=== PATIENT | male | born 1965 | race Caucasian/White ===

== ENCOUNTER → 2017-06-25 | Outpatient (CLI) | payer OTHER ==
[~2017-06-25] MED LIST: ABILIFY 5 MG TAB5 MG PO; ABILIFY10 MG PO; ACETAMINOPHEN325 M1 PO; ADDERALL 30 MG30 MG PO; ADDERALL XR 2020 MG PO; ALBUTEROL SULF8.5 GM INH; AMBIEN 10 MG TA10 MG PO; AMOXICILLIN 50500 MG PO; ANTI-DIARRHEA2 MG PO; AVINZA 30 MG CA30 MG PO; AVINZA 30 MG PO; AVINZA 90 MG CA90 MG; AVINZA 90 MG CA90 MG PO; AVINZA PO; BENADRYL25 MG PO; BENTYL 10 MG CA10 M1 PO; CENTRUM SILVER1 EAC2 PO; CIPRO500 MG PO; CIPROFLOXACIN500 M3; CLARITIN10 MG PO; CLONAZEPAM 0.50.5 M1 PO; COLACE 100 MG100 MG PO; COLESTID1 GM PO; HUMARA INJECTION; HUMIRA40 MG/0.1; HUMIRA40 MG/0.8 SQ; IMODIUM; IMODIUM MULTI-1 EACH; KEFLEX500 MG PO; KLONOPIN1 MG PO; LEVAQUIN 500 M500 M2 PO; LIPITOR20 MG; LISINOPRIL5 MG PO; LIVALO2 MG PO; METFORMIN HCL500 MG PO; MIRALAX17 GM PO; MS CONTIN15 MG PO; NEXIUM40 MG PO; NORCO 5-325 TA1 EACH PO; NYSTATIN 1100000 U/M SW&SWALLOW; OPIUM TINC10 MG/1 M1 PO; PRILOSEC 20 MG20 MG PO; PROCARDIA XL60 MG PO; PROZAC 10 MG CA10 M1; PROZAC 10 MG CA10 MG PO; PROZAC 20 MG20 MG PO; PROZAC40 MG PO; TIZANIDINE HCL4 MG PO; TOPROL XL100 MG PO; TOPROL XL50 MG; TRIMIX; VANCOMYCIN HCL1 GM IVPB; WELLBUTRIN SR150 MG PO; [UNRECOGNIZED DRUG - OTHER] PO; [UNRECOGNIZED DRUG - OTHER] PO
== END ==
LOC: M.RAD 16:28
DX: I51.7 Cardiomegaly (principal); J18.9 Pneumonia, unspecified organism

== ENCOUNTER 2017-07-02 23:23 | Inpatient (IN) | payer OTHER ==
[~2017-07-02] VITALS: Ht 167.6 cm; Wt 88.0 kg
[~2017-07-02 23:23] MED LIST changes: -CLONAZEPAM 0.50.5 M1 PO; -HUMIRA40 MG/0.1; -LIVALO2 MG PO; -MS CONTIN15 MG PO; -PROCARDIA XL60 MG PO
[2017-07-02 23:28] VITALS: BP 153/95
[2017-07-02] MEDS ORDERED: HUMIRA40 MG/0.1 (23:35)
[2017-07-02 23:50] LABS: ABSOLUTE BASOPHILS 0.1 thou/uL (0.0-0.2); ABSOLUTE EOSINOPHILS 0.2 thou/uL (0.0-0.7); ABSOLUTE LYMPHOCYTES 4.4 thou/uL (0.8-5.3); ABSOLUTE MONOCYTES 1.7 thou/uL (0.0-1.2); ABSOLUTE NEUTROPHILS 9.4 thou/uL (1.6-8.1); BASOPHILS 0.7 %; EOSINOPHILS 1.5 %; HEMATOCRIT 43.6 % (42.0-52.0); HEMOGLOBIN 13.9 gm/dL (14.0-18.0); LYMPHOCYTES 27.6 %; MCH 26.6 pg (26.0-34.0); MCHC 31.9 g/dL (28.0-37.0); MCV 83.2 fL (80.0-100.0); MONOCYTES 10.9 %; MPV 7.7 fl. (7.2-11.1); NUCLEATED RBCS 0 /100WBC; PLATELET COUNT* 451 thou/uL (150-400); POLYS 59.3 %; RBC 5.24 mil/uL (4.50-6.00); RDW-CV 18.1 % (10.5-14.5); WBC 15.9 thou/uL (4.0-11.0)
[2017-07-03] LABS: CALCIUM 9.3 mg/dL (8.5-10.1); CREATININE 1.1 mg/dL (0.6-1.3); POTASSIUM 4.7 mmol/L (3.5-5.1)
[2017-07-03 00:11] LABS: ALBUMIN 3.4 g/dL (3.4-5.0); TOTAL BILIRUBIN 0.3 mg/dL (<0.1-1.0); TOTAL PROTEIN 6.8 g/dL (6.4-8.2)
[2017-07-03 02:12] VITALS: BP 136/89
[2017-07-03 02:20] VITALS: BP 147/94
[2017-07-03] MEDS ORDERED: LIVALO2 MG PO (03:40)
[2017-07-03] MEDS ORDERED: MS CONTIN15 MG PO (03:40)
[2017-07-03] MEDS ORDERED: ADDERALL 30 MG30 MG PO (03:43)
[2017-07-03] MEDS ORDERED: PROCARDIA XL60 MG PO (03:45)
[2017-07-03] MEDS ORDERED: CLONAZEPAM 0.50.5 M1 PO (03:46)
--- NOTE | 2017-07-03 04:16 | NUR ---
RECEIVED REPORT FROM ER NURSE, TERESA, RN AT 0135. PT ARRIVED TO UNIT AT 0215 VIA GURNEY. IV ANTIBIOTICS INFUSING, PT ON 3L O2 VIA NC. DENIES PAIN. PT ORIENTED TO ROOM AND CALL LIGHT. FALL EDUCATION/CONTRACT REVIEWED WITH PATIENT, PT VERBALIZED UNDERSTANDING. REFUSED SCDS AT THIS TIME. PT POSITIVE FOR SEPSIS PROTOCOL AT 0255. DR. LANCASTER NOTIFIED AT 0311. NO NEW ORDERS RECEIVED. CALL LIGHT WITHIN REACH. NO CONCERNS VOICED AT THIS TIME.
[2017-07-03 04:34] VITALS: BP 137/88
--- NOTE | 2017-07-03 04:44 | NUR ---
PT DENIES PAIN THIS SHIFT, HOURLY ROUNDING COMPLETED, CALL LIGHT WITHIN REACH.
[2017-07-03 05:20] LABS: URINE BILIRUBIN NEGATIVE (Negative); URINE BLOOD NEGATIVE (Negative); URINE CLARITY CLEAR; URINE COLOR YELLOW; URINE GLUCOSE-RANDOM 1+ (Negative); URINE KETONES NEGATIVE (Negative); URINE LEUKOCYTES NEGATIVE (Negative); URINE NITRITE NEGATIVE (Negative); URINE PROTEIN NEGATIVE (Negative); URINE UROBILINOGEN 0.2 E.U./dl (0.2-1.0)
--- NOTE | 2017-07-03 13:43 | NUR ---
RECEIVED REPORT. ASSUMED CARE OF PT AT 0730. PT A&O X4. VSS. O2 SAT 95% ON RA. PT M/S STATUS. AM ASSESSMENT AND VITALS COMPLETED CHARTED. IV PATENT AND INFUSING. PT REPORTS OCCASIONAL PAIN WHEN TAKING A DEEP BREATH. LUNGS WHEEZY IN THE BASES. BREATHING TREATMENTS ADMINISTERED PT EMAR AND PRN. PT DENIES OTHER PAIN OR DISCOMFORT. PT EATING AND DRINKING WITHOUT ISSUE. FAMILY VISITED AROUND LUNCH TIME. PT UP AD ADEEL IN ROOM, VERY STEADY. UP TO THE BATHROOM, VOIDING WITHOUT ISSUE. ISOLATION MAINTAINED, AWAITING MRSA SWAB RESULTS. LOW FALL RISK PRECAUTIONS IN PLACE. CALL LIGHT IS WITHIN REACH. WILL CONTINUE TO MONITOR.
[2017-07-03 14:32] LABS: CALCIUM 9.1 mg/dL (8.5-10.1); CREATININE 1.3 mg/dL (0.6-1.3); POTASSIUM 4.2 mmol/L (3.5-5.1)
[2017-07-03 16:17] VITALS: BP 118/62
--- NOTE | 2017-07-03 18:41 | NUR ---
PT REMAINS A&O X4. VSS. O2 SAT >90% ON RA. PT REMAINS M/S STATUS. IV PATENT AND INFUSING. PT EATING AND DRINKING WITHOUT ISSUE. PT HAS DENIED PAIN OR DISCOMFORT THROUGHOUT THE SHIFT. PT UNABLE TO PRODUCE A SPUTUM SAMPLE TODAY. MRSA RESULTS STILL PENDING. ISOLATION MAINTAINED. PT UP AD ADEEL TO THE BATHROOM, VOIDING WITHOUT ISSUE. PT PROGRESSING TOWARD GOALS. LOW FALL RISK PRECAUTIONS IN PLACE. CALL LIGHT IS WITHIN REACH. HOURLY ROUNDING PERFORMED. WCTM FOR DURATION OF SHIFT.
[2017-07-03 20:00] VITALS: BP 117/77
[2017-07-04 04:00] VITALS: BP 120/81
--- NOTE | 2017-07-04 05:34 | NUR ---
ASSUMED CARE OF PT AT 1930, NURSING ASSESSMENT COMPLETED AT START OF SHIFT, PT VOICED NO CONCERNS THIS SHIFT, HOURLY ROUNDING COMPLETED, PT MED SURG STATUS, IV FLUIDS INFUSING, IV ANTIBIOTICS ADIMISTERED, SEE EMAR FOR DOCUMENTATION, PT PROGRESSING TOWARDS GOALS, ON ROOM AIR, NO SOA THIS SHIFT, O2 SAT IN MID 90'S WITHOUT O2. CALL LIGHT WITHIN REACH. NO FALLS THIS SHIFT.
[2017-07-04 08:50] VITALS: BP 95/56
--- NOTE | 2017-07-04 10:13 | NUR ---
RECEIVED REPORT, ASSUMED CARE OF PT AROUND 0730. PT A&OX4. VSS, O2 SAT 93% ON RA. PT M/S STATUS. AM ASSESSMENT AND VITALS COMPLETED CHARTED. IV PATENT AND INFUSING. PT REPORTS HEADACHE AT 210, RECEIVED TYLENOL. PT EATING AND DRINKING WITHOUT ISSUE. VOIDING WITHOUT ISSUE. UP TO SHOWER THIS AM. PT INFORMED OF PLAN OF CARE, COMMUNICATES UNDERSTANDING. LUNGS SOUND BETTER TODAY, PT REPORTS THAT LUNGS FEEL CONGESTED STILL. PT TO TRANSFER TO ROOM 307. PT CURRENTLY SITTING UP IN BED. CALL LIGHT IS WITHIN REACH. LOW FALL RISK PRECAUTIONS ARE IN PLACE. WCTM.
[2017-07-04 11:00] VITALS: BP 112/65
--- NOTE | 2017-07-04 11:00 | NUR ---
ASSUMED CARE OF PATIENT AT THIS TIME. PATIENT SETTLED TO ROOM, VITALS COMPLETED AND DOCUMENTED. PATIENT ON ROOM AIR. LUNGS SOUNDS WHEEZY/COARSE. PATIENT DENIES ANY PAIN. CALL LIGHT WITHIN REACH. WILL CONTINUE TO MONITOR.
--- NOTE | 2017-07-04 11:45 | NUR ---
MET WITH PT TO DISCUSS HOME SITUATION/DC PLANNING. AT BEDSIDE. PT LIVES WITH , IS INDEPENDENT AND ACTIVE. HE USES NO EQUIPMENT AND HASN'T HAD HH. HE WORKS AND IS ACTIVE. DENIES ANY DC NEEDS. WILL FOLLOW
[2017-07-04 16:20] VITALS: BP 111/67
--- NOTE | 2017-07-04 18:28 | NUR ---
PATIENT RESTING IN BED. PATIENT UP AD ADEEL IN ROOM. PATIENT ON ROOM AIR. PATIENT DID HAVE SOME SHORTNESS OF BREATH THIS AFTERNOON, BETTER AFTER BREATHING TREATMENT. PATIENT DENIES ANY PAIN. PATIENT DENIES ANY NEEDS AT THIS TIME. CALL LIGHT WITHIN REACH. WILL CONTINUE TO MONITOR.
[2017-07-04 20:00] VITALS: BP 116/63
[2017-07-05 04:44] LABS: HEMATOCRIT 39.7 % (42.0-52.0); HEMOGLOBIN 12.7 gm/dL (14.0-18.0); MCH 26.3 pg (26.0-34.0); MCHC 31.9 g/dL (28.0-37.0); MCV 82.4 fL (80.0-100.0); NUCLEATED RBCS 0 /100WBC; PLATELET COUNT* 458 thou/uL (150-400); RBC 4.82 mil/uL (4.50-6.00); RDW-CV 17.6 % (10.5-14.5); WBC 16.1 thou/uL (4.0-11.0)
--- NOTE | 2017-07-05 05:05 | NUR ---
PT SLEPT SOUNDLY DURING THE NIGHT, IV FLUIDS INFUSED, IV ANTIBIOTICS GIVEN, UP AD ADEEL, PLEASANT, SCHEDULED PAIN MED AT HS, WORE CPAP WHILE SLEEPING, CALL LIGHT IN REACH, WILL CONTINUE TO MONITOR
[2017-07-05 06:14] LABS: ABSOLUTE LYMPHOCYTES 1.9 thou/uL (0.8-5.3); ABSOLUTE MONOCYTES 1.4 thou/uL (0.0-1.2); ABSOLUTE NEUTROPHILS 12.7 thou/uL (1.6-8.1); PLATELET ESTIMATE INCREASED
[2017-07-05 06:15] LABS: ANISOCYTOSIS Occasional
[2017-07-05 08:07] VITALS: BP 112/65
--- NOTE | 2017-07-05 08:09 | NUR ---
PATIENT TOLD THE RESPITORY THERAPIST THAT HE WAS HAVING CHEST PAIN. DURING AN ASSESSMENT THE PATIENT IS STILL COMPLAINING OF CHEST PAIN, PATIENT IS COMPLAINGING OF BEING HARD TO TAKE IN A DEEP BREATH AND IS DIAPHORECTIC. SAYS THE CHEST PAIN IS ALSO IN HIS BACK AND SAYS THE PAIN IS LIKE A PRESSURE. EKG AND VITALS DONE. WAITING OF A CALL FROM THE PROVIDER, WELL BLOWER NOTIFIED. WILL CONTINUE TO MONITOR.
--- NOTE | 2017-07-05 13:58 | EKG ---
[place] [address] ELECTROCARDIOGRAM REPORT Name: FLORESSHON CrShaye KAPOOR Room: [address] ADM IN M.R.#: [id number] Admission: 07/03/17 Attend Phys: Jewel Gupta MD Discharge: Date of : 69 Report #: [id number] THIS REPORT FOR: //name// [facility] Test Date: 2017-07-05 Test Time: 07:54:20 Pat Name: SANTIAGO FLORES Department: Room: [address] Gender: M Seo Executive: : 1965 Requested By: Jewel Gupta Order Number: [id number] Reading MD: Jelani Mora Measurements Intervals [place] Rate: 107 P: 67 MN: 144 QRS: 46 QRSD: 64 T: -75 QT: 299 QTc: 399 Interpretive Statements Sinus tachycardia Left atrial enlargement Nonspecific T abnormalities, lateral leads Compared to ECG 07/06/2016 16:53:29 T-wave abnormality now present Sinus rhythm no longer present Electronically Signed On 07-05-2017 13:58:32 CDT by Jelani Mora [email or web address] <ELECTRONICALLY SIGNED> By: Jelani Mora MD, [facility] 07/05/17 [id number] [id number] Jelani Mora MD, [facility] /EPI
[2017-07-05 16:25] VITALS: BP 118/62
--- NOTE | 2017-07-05 17:35 | NUR ---
PATIENT IS ALERT AND ORIENTED TODAY VERY PLEASANT. UP AD ADEEL IN ROOM. VITAL SIGNS HAVE BEEN STABLE ON ROOM AIR TODAY. IS STILL COMPLAINING OF SOME CHEST DISCOMFORT, MYLANTA WAS GIVEN THIS AFTERNOON TO SEE THAT WILL HELP RELIEVE SOME OF THE DISCOMFORT. FAMILY IS AT BEDSIDE TODAY. CALL LIGHT IS IN REACH, WILL CONTINUE TO MONITOR.
[2017-07-05 19:45] VITALS: BP 124/65
[2017-07-06 04:21] LABS: ABSOLUTE BASOPHILS 0.3 thou/uL (0.0-0.2); ABSOLUTE EOSINOPHILS 0.1 thou/uL (0.0-0.7); ABSOLUTE LYMPHOCYTES 3.3 thou/uL (0.8-5.3); ABSOLUTE MONOCYTES 2.7 thou/uL (0.0-1.2); ABSOLUTE NEUTROPHILS 19.6 thou/uL (1.6-8.1); EOSINOPHILS 0.2 %; HEMATOCRIT 44.3 % (42.0-52.0); HEMOGLOBIN 14.1 gm/dL (14.0-18.0); LYMPHOCYTES 12.7 %; MCH 26.2 pg (26.0-34.0); MCHC 31.9 g/dL (28.0-37.0); MCV 82.3 fL (80.0-100.0); MONOCYTES 10.3 %; NUCLEATED RBCS 0 /100WBC; PLATELET COUNT* 513 thou/uL (150-400); POLYS 75.8 %; RBC 5.38 mil/uL (4.50-6.00); RDW-CV 18.1 % (10.5-14.5); WBC 25.8 thou/uL (4.0-11.0)
[2017-07-06 04:44] LABS: ALBUMIN 3.4 g/dL (3.4-5.0); CALCIUM 9.6 mg/dL (8.5-10.1); CREATININE 1.5 mg/dL (0.6-1.3); POTASSIUM 4.7 mmol/L (3.5-5.1); TOTAL BILIRUBIN 0.9 mg/dL (<0.1-1.0)
--- NOTE | 2017-07-06 05:03 | NUR ---
PT SLEPT AT INTERVALS DURING THE NIGHT, IV ANTIBIOTICS GIVEN, WORE CPAP WHILE SLEEPING, SPOKE WITH DR. OLEA LAST NIGHT REGARDING PATIENT, PATIENT C/O CHEST/LUNG COUGHING PAIN AGAIN, ORDERS TO GIVEN PRN KLONIPIN AND PRN HYDROCODONE. RELIEF OBTAINED. BREATHING TREATMENTS BY RT. RASHEED, CALL LIGHT IN REACH, WILL CONTINUE TO MONITOR
[2017-07-06 08:25] VITALS: BP 110/63
--- NOTE | 2017-07-06 09:48 | 2DMMODE ---
[place] [address] 2 D/M-MODE ECHOCARDIOGRAM Name: SANTIAGO FLORES Room: [address] IN [facility]#: [id number] Admission: 07/03/17 Attend Phys: Jewel Gupta, Discharge: Date of : 69 Date of Service: 07/06/17 0948 Report #: [id number] THIS REPORT FOR: //name// APPROVED REPORT Study performed: 07/05/2017 15:42:42 EXAM: Comprehensive 2D, Doppler, and color-flow Echocardiogram Patient Location: In-Patient Room #: [facility] Status: routine BSA: 1.91 HR: 97 bpm BP: 112/653 mmHg Rhythm: NSR Other Information Study Quality: Good Indications Dyspnea Chest Pain 2D Dimensions LVEF(%): 68.92 (>50%) IVSd: 13.18 (7-11mm) LVOT Diam: 19.35 (18-24mm) LVDd: 42.33 mm PWd: 10.40 (7-11mm) Ascending Ao: 32.16 (22-36mm) LVDs: 26.12 (25-40mm) Aortic Root: 32.59 mm Varela's LVEF: 68.92 % Volumes Left Atrial Volume (Systole) LA ESV Index: 24.10 mL/m2 Aortic Valve AoV Peak Jarrod.: 2.11 m/s AO Peak Gr.: 17.78 mmHg LVOT Max P.83 mmHg AO Mean Gr.: 10.36 mmHg LVOT Mean P.86 mmHg LVOT Max V: 1.65 m/s AO V2 VTI: 32.97 cm LVOT Mean V: 1.13 m/s LARRY (VTI): 2.10 cm2 LVOT V1 VTI: 23.58 cm [place] [address] 2 D/M-MODE ECHOCARDIOGRAM Name: SANTIAGO FLORES Room: [address] IN .R.#: [id number] Admission: 07/03/17 Attend Phys: Jewel Gupta, Discharge: Date of : 69 Date of Service: 07/06/17 0948 Report #: [id number] E/A Ratio: 1.18 MV Decel. Time: 175.70 ms MV E Max Jarrod.: 1.43 m/s MV PHT: 50.95 ms MVA (PHT): 4.32 cm2 TDI E/Lateral E': 9.53 E/Medial E': 9.53 Medial E' Jarrod.: 0.15 m/s Lateral E' Jarrod.: 0.15 m/s Pulmonary Valve PV Peak Jarrod.: 1.46 m/s PV Peak Gr.: 8.50 mmHg Left Ventricle The left ventricle is normal size. There is normal LV segmental wall motion. There is normal left ventricular wall thickness. Left ventricular systolic function is normal. The left ventricular ejection fraction is within the normal range. LVEF is 60-65%. The left ventricular diastolic function is normal. Right Ventricle The right ventricle is normal size. The right ventricular systolic function is normal. Atria The left atrium size is normal. The right atrium size is normal. Aortic Valve The aortic valve is normal in structure. No aortic regurgitation is present. There is no aortic valvular stenosis. Mitral Valve The mitral valve is normal in structure. There is no mitral valve regurgitation noted. No evidence of mitral valve stenosis. Tricuspid Valve The tricuspid valve is normal in structure. Unable to assess PA pressure. Trace tricuspid regurgitation. Pulmonic Valve The pulmonary valve is normal in structure. There is no pulmonic valvular regurgitation. [place] [address] 2 D/M-MODE ECHOCARDIOGRAM Name: SANTIAGO FLORES Room: [address] IN ..#: [id number] Admission: 07/03/17 Attend Phys: Jewel Gupta, Discharge: Date of : 69 Date of Service: 07/06/17 0948 Report #: [id number] The aortic root is normal in size. IVC is normal in size and collapses with >50% inspiration Pericardium There is no pericardial effusion. <Conclusion> The left ventricle is normal size. There is normal left ventricular wall thickness. LVEF is 60-65%. There is normal LV segmental wall motion. Normal valvular function <ELECTRONICALLY SIGNED> By: Chris Bassett MD, FACC 07/06/1748 7 7 Chris Bassett MD, FACC /INF
--- NOTE | 2017-07-06 16:19 | NUR ---
PATIENT HAS BEEN A/O X 4 THIS SHIFT. HAS HAD SOME PERIODS OF INCREASED SHORTNESS OF AIR THIS SHIFT WHEN ON ROOM AIR, APPLIED O2 AT 2L/NC AND PATIENT STATES FEELING BETTER. CONTINUES TO HAVE CHEST PRESSURE/LUNG PAIN, MEDICATED WITH RELIEF OF PRN HYDOROCODONE. IV ANTIBIOTICS INFUSING ORDERED. UP TO CHAIR TODAY FOR PERIODS OF TIME AND AMBUALTING IN [place] FOR SHORT DISTANCES. SEEN BY PULMONARY AND MEDS ADJUSTED. TOLERATING DIET. AT BEDSIDE THROUGHOUT THE SHIFT. HOURLY ROUNDING MAINTAINED. CALL LIGHT WITHIN REACH. WILL CONTINUE WITH PLAN OF CARE.
[2017-07-06 16:42] VITALS: BP 132/71
[2017-07-06 20:15] VITALS: BP 108/72
--- NOTE | 2017-07-07 02:28 | NUR ---
WENT TO PATIENT ROOM ABOUT 0130 TO GIVE BENADRYL FOR ANXIETY. AFTER MEDICATION GIVEN, NOTICED 2 PILLS AND AN INHALER SITTING ON BEDSIDE TABLE. ASKED PATIENT ABOUT PILLS, PT STATED THAT ONE WAS MORPHINE THE OTHER WAS SOMETHING THAT BEGAN WITH AN L BUT HE COULD NOT REMEMBER FOR SURE WHAT IS WAS. ASKED PT WHERE HE GOT THE PILLS AND PT SAID THEY ARE HIS HOME MEDICATIONS THAT HE HAS IN HIS BAG. EDUCATED PT ON WHY HE CANNOT TAKE HIS OWN HOME MEDICAIONS, PT STATED UNDERSTANDING BUT ADDED THAT HE WAS JUST TOO ANXIOUS AND THAT IF WE DID NOT GET HIM SOMETHING THAT HE WOULD HAVE TO TAKE HIS OWN. INFORMED PT THAT HOME MEDICATIONS HAD TO BE SENT TO PHARMACY, PT REFUSED STATING HE WOULD JUST PUT THEM BACK IN HIS BAG. INFORMED PT THAT MORPHINE WAS NOT FOR ANXIETY AND PT STATED THAT HIS ANXIETY WAS FROM EVERYTHING GOING ON AND HIS CHEST HURTING WAS CAUSING MORE ANXIETY. HEAT TREATER HELPER NOTIFIED. DR DSOUZA, WAITING TO HEAR BACK.
--- NOTE | 2017-07-07 02:56 | NUR ---
TALKED WITH DR. MARGAUX ACE. TALKED WITH PATIENT AGAIN, TOLD PT WE CANNOT GIVE ANY MORE MEDICATIONS IF HE KEPT HIS HOME MEDS, PT AGREED TO HAND OVER MEDICATIONS. PT GAVE NURSE 1 ROUND WHITE PILL WITH RENEA ON ONE SIDE AND 2 ON THE OTHER, ONE OFFWHITE PILL WITH 54 [phone] ON IT, AND A SYMBICORT INHALER. PT STATED THAT THIS WAS ALL HE HAD BROUGHT, ASKED HOW PT BROUGHT IT SINCE WAS GIVEN TO NURSE IN HOSPITALS MEDICINE CUP. PT STATED THAT HE ONLY BROUGHT THOSE PILLS IN A ZIP LOCK BAGGIE, BAG WAS NOT SEEN. WILL GIVEN TO FINANCIAL SALES ASSOCIATE TO SEND TO PHARMACY.
--- NOTE | 2017-07-07 06:30 | NUR ---
WENT TO GIVE MORNING MEDS, SECURITY FOLLOWED TO TALK TO PATIENT. SECURITY EXPLAINED TO PATIENT THAT HE CANNOT TAKE HIS OWN MEDICATION. PT STATED UNDERSTANDING AND TOLD SECURITY THAT HE DOES NOT HAVE ANY MEDICATIONS ON HIM ANYMORE. AFTER SECURITY LEFT, PT STATED THAT HIS NEEDS HAVE NOT BEEN GETTING MET FOR HIS ANXIETY AND THATS WHY HE HAS HIS HOME MEDS. HE STATED THAT HE IS NOT ALWAYS GETTING THE MEDICATION FAST ENOUGH, AND THAT UNTIL THE ATIVAN WAS ORDERED HE WAS NOT GETTING THE TYPE OF MEDICATION THAT HE HAS BEEN NEEDING. PT ALSO STATED AFTER THAT, THAT A NURSE TOLD HIM THAT HE WAS ALLOWED TO TAKE HIS OWN MEDICATION. PT STATED THAT A NURSE TOLD HIM THAT SINCE WE DON'T CARRY ADDERALL THAT HE WAS TOLD TO TAKE HIS OWN, PT EDUCATED THAT WE HAVE HOME MEDICATIONS SENT TO PHARMACY AND WE KEEP THEM AND SCAN THEM EACH TIME THAT THEY ARE TO BE GIVEN. PT INSISTED THAT HE WAS NOT TOLD THIS, THAT HE WAS JUST SUPPOSED TO TAKE THEM. PT STATED THAT HE HAS NOT BEEN TAKING HIS ADDERALL AND THAT HE DOES NOT HAVE IT ON HIM. ADULT DAY CARE WORKER NOTIFIED, WILL INFORM ONCOMING NURSE.
--- NOTE | 2017-07-07 07:46 | NUR ---
PT AWAKE MOST OF SHIFT. ASSESSMENT DOCUMENTED, MEDS GIVEN PER E-MAR. PAIN MEDS GIVEN PER E-MAR. PT REPORTS UNCONTROLLED ANXIETY AND THAT THE PAIN IS MAKING THE ANXIETY WORSE. SEE PREVIOUS NOTES. REPORT GIVEN TO ONCOMING NURSE.
[2017-07-07 07:50] VITALS: BP 117/60
--- NOTE | 2017-07-07 10:59 | CON ---
[address] [address] CONSULTATION Name: SANTIAGO FLORES Room: [address] IN M.R.#: [id number] Admission: 07/03/17 Attend Phys: Jewel Gupta MD Discharge: Date of : 69 Report #: [id number] THIS REPORT FOR: //name// CC: Jewel Davis DO DATE OF SERVICE: 07/06/2017 PULMONARY CONSULTATION ATTENDING PHYSICIAN: Omar Davis DO. PRIMARY CARE PHYSICIAN: Angle Novoa M.D. INDICATION FOR CONSULTATION: Dyspnea, wheezing and bronchospasm. HISTORY OF PRESENT ILLNESS: The patient, 51-year-old male, nonsmoker, presented to the Emergency Room Department on 07/02/2017 with a 2- to 3-week history of shortness of breath. He had bronchitis, possible lower lobe infiltrates. Two weeks ago, he was put on a Prednisone taper 20 mg a day for 5 days. He also finished his Z-TARAN and some Amoxil. He really did not feel that much better. He just used his nebulizer machine prior to coming to the Emergency Room Department. He has been on a nebulizer intermittently over the last at least 3-4 weeks. The patient was short of breath with a cough. He actually feels worse while he is in the hospital. Saturations on 2 liters, 93% to 94% and he just feels better with the oxygen. He appears short of breath at rest. He is short of breath when he gets up and walks to the nurse's station, according to his nurse. He denies any fever or chills. Denies any hemoptysis. He felt congested, but cleared up some thin clear sputum. His saturations have been okay. We will keep him on 2 liters at this time at sats 94%. He has never been on oxygen before. He is on a CPAP machine at 7 cm for obstructive sleep apnea. He is not on any oxygen at night for that. PAST MEDICAL HISTORY: He has had a history of ulcerative colitis and Crohn's disease. He had a colon resection several years ago. His Crohn's is still active. He is taking Humira every 8 weeks. He skipped at about 4 weeks ago to let his immune system improve. He has had a remote history of bronchitis. He denies any history of asthma. He has intermittent diarrhea because of his inflammatory bowel disease. His dyspnea at this time is definitely worse than what it has ever been. Again, obstructive sleep apnea, on 7 cm of auto CPAP. Sleep study was done about 5-[address] in [facility]. OUTPATIENT MEDICATIONS: He was on metformin 1000 mg b.i.d., omeprazole [address] [place] [address] CONSULTATION Name: SANTIAGO FLORES Room: [address] IN ..#: [id number] Admission: 07/03/17 Attend Phys: Jewel Gupta MD Discharge: Date of : 69 Report #: [id number] daily, nifedipine 120 mg b.i.d., clonazepam 0.5 mg t.i.d. anxiety, Prozac 20 mg daily and zolpidem 10 mg p.r.n. for sleep. CPAP is at 7 cm. He was on prednisone 40 mg a day. He was on Levaquin 750 mg p.o. daily and Zosyn 3.375 q. 8 hours at this time. PAST SURGICAL HISTORY: He has a history of small-bowel obstruction. He has had inguinal hernia repair as an . He had a hernia repair with mesh in 2006. He had a colectomy with placement of a J-pouch for ulcerative colitis several years ago and he has had diabetes mellitus type 2. ALLERGIES: HE HAS ALLERGIES OR INTOLERANCE TO SULFA DRUGS AND DROPERIDOL. REVIEW OF SYSTEMS: Again, 14-point review of systems reviewed and negative, except for pertinent positives noted in the HPI. PHYSICAL EXAMINATION: GENERAL: Dyspneic-appearing male at rest, in no acute distress, but he can talk to me in full sentences. VITAL SIGNS: He is on 2 liters, sats 94%. Blood pressure has been 124/65, his heart rate has been 104, respirations are 24 and slightly labored. Highest temperature was 37 degrees; it is currently 36.7. He is 5 feet 7 inches tall, weight 82 kilograms at 180 pounds and BMI is 29. HEENT: Unremarkable. Mucous membranes appear moist. NECK: Supple, without nodes. CHEST: Shows posteriorly wheeze and rhonchi at both lung bases. Prolonged expiratory phase and with tight cough. CARDIOVASCULAR: Sinus tachycardia with heart rate of 104. ABDOMEN: Has previous midline surgical scar. It is soft without rebound. Bowel sounds are active. EXTREMITIES: No calf tenderness. No cyanosis, clubbing or edema. Homans sign is negative. NEUROLOGIC: Grossly intact, moves all 4s to commands. LABORATORY DATA: Today is a previous white count on 07/02/2017 was 15,900; 07/06/2017, it is 25,800. Platelets are 513,000, mild decrease in lymphocytes. This may be related to his steroids and prednisone use. Neutrophils were up to 19,600. Sodium is 138, potassium is 4.7, BUN is 20 with a creatinine of 1.5 and glucose of 50. Blood sugars have been between 127 and 214. LFTs are elevated, AST is 66 and ALT is 100. Albumin is 3.4. MRSA is negative. Coags, his D-dimer is 0.20; 0.19 is normal. Chest x-ray and CT of the chest are reviewed, both done noncontrast, since his creatinine was 1.5 from 07/03/2017 and 07/05/2017. Minimal bibasilar atelectasis, small hiatal hernia, minimal ground-glass infiltrates in the right lower lung. Chest x-ray from the same day shows about the same. No definite pneumonia. There is no lung masses noted. Diaphragms [place] [address] CONSULTATION Name: FLORESSANTIAGO Room: [address] [place] [facility]#: [id number] Admission: 07/03/17 Attend Phys: Jewel Gupta MD Discharge: Date of : 69 Report #: [id number] IMPRESSION: 1. Dyspnea, etiology unclear and he has got small airways disease, bronchitis and asthmatic bronchitis with reactive airways disease. He appears somewhat wheezy and bronchospastic at this time and short of breath. 2. History of Crohn's disease and ulcerative colitis. 3. Diaphragm weakness, poor incentive spirometry to about 5750 mL. 4. Obstructive sleep apnea, on auto CPAP at 7 cm, seems to have fair control. PLAN: I am going to add more bronchodilators, montelukast 10 mg daily. We will try some albuterol tablets to see if he tolerates this and keep him on the oral steroids at 40 mg a day as well as the antibiotics. I will do some room air exercises, oximetry on him in a day or two to see if he de-saturates. Previous echocardiogram did not show pulmonary hypertension and his EF was 65%. This was 3 days ago. He may need venous Dopplers and maybe a CT angio of the chest, if we can get him done under protocol with normal creatinine. I think this is more infectious and bronchospasm at this time. This has been a 34-minute critical care consult. We will follow up along with you while he is in the hospital. <ELECTRONICALLY SIGNED> By: Sundeep Caballero MD 07/07/17 1059 1309 [id number] Caballero MD /nt
[2017-07-07 16:53] VITALS: BP 130/69
[2017-07-07 19:22] LABS: HEMATOCRIT 39.7 % (42.0-52.0); HEMOGLOBIN 13.2 gm/dL (14.0-18.0); MCH 26.7 pg (26.0-34.0); MCHC 33.2 g/dL (28.0-37.0); MCV 80.5 fL (80.0-100.0); MPV 7.5 fl. (7.2-11.1); NUCLEATED RBCS 0 /100WBC; PLATELET COUNT* 440 thou/uL (150-400); RBC 4.93 mil/uL (4.50-6.00); RDW-CV 17.8 % (10.5-14.5); WBC 22.6 thou/uL (4.0-11.0)
--- NOTE | 2017-07-07 19:36 | NUR ---
PATIENT REQUESTING TRANSFER TO . I CONTACTED THE TRANSFER CENTER AND RECORDS WERE SENT PER THEIR REQUEST. THEY DID NOT ACCEPT THE PATIENT BECAUSE HE IS RECEIVING THE APPROPRIATE CARE HERE AND DOES NOT REQUIRE A HIGHER LEVEL OF CARE. PATIENT NOTIFIED. HE REQUESTED TRANSFER TO [facility]. DR CRUZ AND ANAIS NOTIFIED. [facility] DOES NOT HAVE ANY ROOM, BUT WE CAN TRY TO CALL AGAIN TOMORROW, IF PATIENT DESIRES. PATIENT REQUESTING MORE ANXIETY MEDICATION. DR OLEA NOTIFIED.
[2017-07-07 19:43] LABS: ALBUMIN 2.9 g/dL (3.4-5.0); CALCIUM 9.1 mg/dL (8.5-10.1); CREATININE 1.6 mg/dL (0.6-1.3); POTASSIUM 4.1 mmol/L (3.5-5.1); TOTAL BILIRUBIN 0.5 mg/dL (<0.1-1.0); TOTAL PROTEIN 6.7 g/dL (6.4-8.2)
[2017-07-07 20:15] LABS: ABSOLUTE LYMPHOCYTES 2.7 thou/uL (0.8-5.3); ABSOLUTE MONOCYTES 2.5 thou/uL (0.0-1.2); ABSOLUTE NEUTROPHILS 17.4 thou/uL (1.6-8.1); ANISOCYTOSIS 1+; MICROCYTES Occasional; PLATELET ESTIMATE ADEQUATE
[2017-07-07 20:16] LABS: POLYCHROMASIA Occasional
--- NOTE | 2017-07-07 20:17 | NUR ---
PATIENT HAS BEEN A/O X 4 THIS SHIFT, EXTREMELY ANXIOUS THROUGHOUT THE SHIFT. PATIENT HAS HAD INCREASED DYSPNEA THIS SHIFT, O2 INCREASED TO 4L/NC WITH O2 SATS 90-91%. PATIENT DID HAVE REST AND EXERCISE SAT STUDY COMPLETED ON ROOM AIR PER PULMONARY'S ORDERS THIS SHIFT. PATIENT DESATTED ON ROOM AIR AND REQUIRES O2 WITH REST AND EXERCISE, SEE DOCUMENTED INTERVENTION BY RT. THIS NURSE PRESENT IN ROOM WHEN DR CRUZ ROUNDED ON PATIENT AND ORDERS RECEIVED FOR STAT CTA OF CHEST DUE TO INCREASING SHORTNESS OF AIR. RESULTS OF CTA GIVEN TO DR CRUZ AND TO DR MANZO WHEN PHYSICIAN ROUNDED. H1N1 SWAB AND URINE SENT FOR STREP PNEUMONIA ANTIGEN PER DR MANZO'S ORDERS. PATIENT'S O2 INCREASED TO 6L/NC WHEN AMBULATING TO BATHROOM AND NURSING PRESENT WITH PATIENT WHEN AMBULATING DUE TO PATIENT FEELING EXTREMELY DYSPNEIC. PATIENT ASKING THROUGHOUT THE SHIFT TO HAVE ANTI-ANXIETY MEDS INCREASED TO HELP, EDUCATION PROVIDED TO PATIENT AND FAMILY IN ROOM REGARDING RESPIRATORY STATUS AND ANXIETY MULTIPLE TIMES THROUGHOUT THE SHIFT. PATIENT STATED HE VERBALIZED UNDERSTANDING. PATIENT'S AND PARENTS IN ROOM THIS SHIFT AND STATED THEY WOULD LIKE PATIENT TRANSFERRED TO ANOTHER FACILITY. CONTACTED DR CRUZ AND NURSING SHOT COAT TENDER TO INFORM OF PATIENT AND FAMILY REQUEST. DR CRUZ INFORMED THIS HEMATOLOGY TECHNICIAN THAT KU DECLINE PATIENT FOR TRANSFER DUE TO PATIENT RECEIVING THE APPROPRIATE CARE AT THIS FACILITY. NURSING SHOT COAT TENDER UPDATED PATIENT AND FAMILY AND REQUEST SENT TO [facility] FOR TRANSFER. DR CRUZ RETURNED CALL TO THIS HEMATOLOGY TECHNICIAN AND STATED THAT [facility] WAS UNABLE TO ACCEPT PATIENT AT THIS TIME BUT MAY TRY AGAIN IN AM. DR CRUZ THEN SPOKE WITH PATIENT VIA TELEPHONE TO ANSWER ANY QUESTIONS ON PATIENT'S TELEPHONE IN ROOM WITH FAMILY PRESENT. PATIENT ASKING AGAIN FOR AN INCREASE IN ANXIETY MEDS THIS EVENING. DR OLEA IN ROOM TO ASSESS PATIENT AND EXPLAINED WITH THIS HEMATOLOGY TECHNICIAN IN THE ROOM TO THE PATIENT THE RISKS OF INCREASING ANTI-ANXIETY MEDS DUE TO HIS CURRENT RESPIRATORY STATUS. ORDERS RECEIVED TO HAVE REPEAT LABS, PLACE PATIENT ON GENERAL DENTIST/OWNER AND TO START IV FLUIDS. NEW IV STARTED AND FLUIDS INITIATED. PATIENT TRACING ST ON THE MONITOR. PATIENT'S TO STAY THE NIGHT WITH THE PATIENT IN ROOM, OFFERED COT BUT DECLINED AT PRESENT TIME. PATIENT STATED THROUGHOUT THE SHIFT BEING FRUSTRATED WITH NOT GETTING BETTER, REASSURANCE PROVIDED AND EDUCATION REGARDING PNEUMONIA GIVEN TO PATIENT AND FAMILY THIS AFTERNOON. PATIENT ALSO CONCERNED THAT HOME MEDS WERE NOT RECONCILED CORRECTLY WHEN FIRST ADMITTED, THIS HEMATOLOGY TECHNICIAN REVIEWED HOME MEDS WITH PATIENT AND FAMILY AND MEDS WERE CORRECT. REPORT GIVEN TO ONCOMING NURSE AND INTRODUCED TO PATIENT. HOURLY ROUNDING COMPLETED THROUGHOUT THE SHIFT. CALL LIGHT WITHIN REACH. WILL CONTINUE WITH PLAN OF CARE.
[2017-07-07 23:54] VITALS: BP 133/55
[2017-07-08] VITALS (10 sets, daily range): BP systolic 123–161; BP diastolic 60–84
--- NOTE | 2017-07-08 02:30 | NUR ---
PT BROUGHT TO THE ICU BED 3 FROM [facility] WITH RESP DISTRESS. ASSESSMENT AND VS OBTAINED, SEE CHARTING. MANAGER TECHNICAL SERVICES ON AND TRACING ST. ABG WAS OBTAINED A BASELINE, RESULTS CALLED TO THE PULMONARY. ORDERS RECIEVED. PT IS VERY ANXIOUS AT THIS TIME AND REMAINS TACHYPNEIC. CXR WAS OBTAINED STAT.
--- NOTE | 2017-07-08 02:33 | NUR ---
PATIENT WAS SATTING 91-92% ON 4L AT BEGINNING OF SHIFT. AT ABOUT MIDNIGHT PATIENT WAS SATTING 83% ON 4L. INCREASED OXYGEN TO 6L PATIENT STILL ONLY SATTING 87-88%. RT WAS NOTIFIED ATTEMPTED TO PLACE PATIENT ON HIGHFLOW NC AT 12 L STILL COULD NOT GET SATS UP 90% AND GAVE PATIENT TWO BREATHING TREATMENTS. PATIENT WAS PLACED ON NRB AT 15L O2 SAT WAS 92%. DR. OLEA WAS NOTIFIED IN CHANGE OF CONDITION ORDERS RECEIVED TO TRANSFER PATIENT TO ICU. PULMONARY WAS ALSO CALLED AND ORDERS WERE RECEIVED. REPORT WAS GIVEN TO HA[place] ANN RN. PATIENT AND ALL HIS BELONGINGS WERE TAKEN DOWN TO ICU BED 3 AT ABOUT 0230.
[2017-07-08 02:51] LABS: BE -1.8 mmol/L (-2 to +3); HCO3 20.4 mmol/L (22.0-26.0); PCO2 28.1 mmHg (35.0-45.0); pH 7.478 (7.340-7.450)
[2017-07-08 02:52] LABS: PO2 58.5 mmHg (75.0-100.0)
--- NOTE | 2017-07-08 03:51 | NUR ---
PT HAD TO URINATE AND TRIED WITH THE URINAL AND ENDING UP TAKING THE BI PAP OFF AND GOT TACHYPNEIC -48 O2 SAT OF 84 AND TACHYCARDIA- 125. PT STATES THAT HE CAN'T USE THE URINAL WITH THE BI PAP ON. UPON PT'S CONSENT AND URINARY CATHETER WAS PLACED
[2017-07-08 04:41] LABS: ABSOLUTE BASOPHILS 0.1 thou/uL (0.0-0.2); ABSOLUTE EOSINOPHILS 0.7 thou/uL (0.0-0.7); ABSOLUTE LYMPHOCYTES 2.5 thou/uL (0.8-5.3); ABSOLUTE NEUTROPHILS 18.5 thou/uL (1.6-8.1); BASOPHILS 0.3 %; LYMPHOCYTES 10.6 %; MCH 26.6 pg (26.0-34.0); MCHC 32.4 g/dL (28.0-37.0); MCV 82.2 fL (80.0-100.0); MONOCYTES 8.5 %; MPV 7.4 fl. (7.2-11.1); NUCLEATED RBCS 0 /100WBC; PLATELET COUNT* 442 thou/uL (150-400); POLYS 77.6 %; RBC 4.87 mil/uL (4.50-6.00); RDW-CV 17.8 % (10.5-14.5); WBC 23.8 thou/uL (4.0-11.0)
[2017-07-08 05:21] LABS: ALBUMIN 2.9 g/dL (3.4-5.0); CALCIUM 8.8 mg/dL (8.5-10.1); CREATININE 1.3 mg/dL (0.6-1.3); POTASSIUM 3.7 mmol/L (3.5-5.1); TOTAL BILIRUBIN 0.6 mg/dL (<0.1-1.0); TOTAL PROTEIN 6.9 g/dL (6.4-8.2)
--- NOTE | 2017-07-08 06:16 | NUR ---
PT HAS SETTLED DOWN SINCE RECIEVING THE ATIVAN AND HYDROCODONE PT HAS RELAXED AND KEPT THE BI PAP ON. BEFORE THE MEDS PT WAS FINDING ANY MANI TO TAKE THE BI PAP OFF AND IT WAS EXPLAINED TO HIM THAT IF HE DOESN'T KEEP THE BI PAP ON THE NEXT THING IS INTUBATION AND HE AGREEDED HE DIDN'T WANT THAT. PT HAD A TOTAL OF 2400ML OF URINE AFTER THE 40MG OF LASIX.
--- NOTE | 2017-07-08 07:57 | NUR ---
ASSUMED CARE OF PATIENT AFTER RECEIVING BEDSIDE REPORT. ASSESSMENT COMPLETED, VSS. PATIENT DENIES COMPLAINTS AND CONCERNS. PATIENT CHANGED TO HIGH FLOW NASAL CANNULA AT 15L, PATIENT TOLERATING WELL. PATIENT LUNG SOUNDS ARE CLEAR. PATIENT IN NO ACUTE RESPIRATORY DISTRESS. PATIENT IN DROPLET PRECAUTIONS FOR PENDING H1N1. 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 BED ALARM ON. CALL LIGHT WITHIN REACH, USE REINFORCED. WILL CONTINUE TO MONITOR.
[2017-07-08 08:37] LABS: BE -0.4 mmol/L (-2 to +3); HCO3 22.1 mmol/L (22.0-26.0); PCO2 30.2 mmHg (35.0-45.0); PO2 64.8 mmHg (75.0-100.0); pH 7.482 (7.340-7.450)
--- NOTE | 2017-07-08 10:15 | NUR ---
PER AYDEE Willard/ICU PT.OK WITH STAYING HERE AND IS PLEASED WITH HIS CARE.
--- NOTE | 2017-07-08 14:22 | NUR ---
TRANSFER TEAM NOTIFIED RN THAT PATIENT HAD CONTACTED A FRIEND AT AND REQUESTED TO TRANSFER PATIENT. RN WAS NOTIFIED BY THAT PREVIOUS REQUEST HAD BEEN DENIED. PATIENT WAS VERY PLEASANT WITH RN WITH NO COMPLAINTS. RN ASKED PATIENT IF THIS WAS STILL THEIR REQUEST, PATIENT STATED IT WAS. RN EXPLAINED THAT RN WAS ON THE PHONE WITH TRANSFER TEAM TRYING TO FACILITATE TRANSFER. DURING REPORT PATIENT'S APPROACHED AND ACCUSED RN OF CONVINCING TRANSFER TEAM TO DENY TRANSFER. RN AGAIN EXPLAINED THAT REPORT WAS BEING GIVEN TO FACILITATE TRANSFER. RN CONTINUED TO FACILITATE TRANSFER. PATIENT'S DEMANDED TO SPEAK WITH ADMINISTRATION STATING RN WAS RUDE AND THAT PATIENT HAD HORRIBLE EXPERIENCE IN HOSPITAL STAY. RN APOLOGIZED AND ATTEMPTED TO EXPLAIN AGAIN WHAT WAS GOING ON. RN ADVISED TO CHANGE ASSIGNMENTS, RN CHANGED ASSIGNMENTS. REPORT GIVEN TO MAIKEL THAO.
--- NOTE | 2017-07-08 14:42 | NUR ---
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 HE IS TOTALLY DISATISFIED WITH HIS CARE HERE. ARTURO SPOKE WITH DON/NIKITA TRANSFER TEAM. SHE IS AWARE PT.IS FRIENDS WITH AN ANESTHESIOLOGIST AT AND HE APPEARS MORE ILL THAN HE WAS YESTERDAY. SHE WILL FIND AN ACCEPTING PHYSICIAN. ARTURO SPOKE WITH AND HE IS AGREEABLE. DON WILL PUT HER DRMaryamINTOUCH WITH . ACCEPTING DRMaryamTO BE GENEVIEVE ZUNIGA. AWAITING BED ASSIGNMENT AND ARTURO WILL CALL AMBULANCE. CHART TO BE COPIED TO GO WITH PT. NIKITA TO CALL MAIKEL BAJWA TO GET REPORT.
--- NOTE | 2017-07-08 17:50 | CON ---
[address] [address] CONSULTATION Name: POPESANTIAGOShaye KAPOOR Room: [address] IN M.R.#: [id number] Admission: 07/03/17 Attend Phys: Jewel Gupta MD Discharge: 07/08/17 Date of : 69 Report #: [id number] THIS REPORT FOR: //name// CC: Jewel SHELTONA DAIJA Anglejaswant Novoa DATE OF SERVICE: 07/05/2017 HISTORY OF PRESENT ILLNESS: The patient is a 51-year-old white male who I was asked to see in the hospital after he complained of chest pain. The patient has an extensive past medical history. He has a history of ulcerative colitis and had a previous total colectomy with a J pouch. He was previously seen by my partner, Dr. Bassett for palpitations. He was given an event recorder. He wore a Holter monitor back in 2014 that showed sinus rhythm, no atrial fibrillation, occasional PACs. The patient apparently did have an echocardiogram and stress test at [facility], although I do not have those results. Apparently, no significant abnormalities were detected. The patient last saw Dr. Bassett in 08/2016. The patient does not exercise on a regular basis, but stays fairly active at work. He was actually admitted here to [place] 2 days ago with cough. It has been going on for about a week. He was placed on steroids by his primary care physician. He was finally admitted here and felt to have pneumonia. Today, the patient complained of burning in his chest, went into his back. It was worse when he took a deep breath. He denied any blood in stool. The pain was not related to food. He had no belching. He felt his heart racing. I was asked to see him for further evaluation and treatment. PAST MEDICAL HISTORY: Otherwise significant for breast lumpectomy, hernia repair, sinus surgery, ulcerative colitis, sleep apnea, hypertension, diabetes, hyperlipidemia. MEDICATIONS: Consists of Humira, Adderall, Abilify, insulin, Wellbutrin, Depo testosterone, Prozac, loratadine, metformin, omeprazole. ALLERGIES: He has a previous intolerance to ____, LISINOPRIL, SULFA DRUGS. FAMILY HISTORY: His grandfather had heart disease. SOCIAL HISTORY: He is . He and his live here in [place]. He works in a [employer]. No smoking. No alcohol abuse. REVIEW OF SYSTEMS: He has had no history of stroke, asthma. He has had peptic ulcer in the past. No liver disease. He had a kidney stone in the past. No chronic skin condition. He does have a history of depression, saw [place] [address] CONSULTATION Name: SANTIAGO FLORES Room: [address] IN ..#: [id number] Admission: 07/03/17 Attend Phys: Jewel Gupta MD Discharge: 07/08/17 Date of : 69 Report #: [id number] PHYSICAL EXAMINATION: GENERAL: Revealed a middle-aged male lying in bed. He appeared in no distress. VITAL SIGNS: Showed a blood pressure of 120/60, pulse is 100. He is afebrile. HEENT: He is anicteric. Conjunctivae pink. Mucous membranes moist. NECK: Veins nondistended. No carotid bruits. Neck was supple. CHEST: Revealed coarse breath sounds bilaterally. CARDIAC: Regular, tachycardia. No significant murmur or rub. ABDOMEN: Soft. EXTREMITIES: Had no edema, no Homans' sign. Dorsalis pedis pulse 2+ bilaterally. SKIN: Warm, dry. NEUROLOGIC: Nonfocal. DIAGNOSTIC DATA: His ECG this morning shows sinus tachycardia, nonspecific ST and T-wave changes. Compared to ECG from earlier today, no significant change. LABORATORY DATA: Sodium 139, creatinine 1.3, glucose 162. Liver function studies were normal. Troponin today was 0.06. His white blood cell count was 16.1, hemoglobin 12.7. The patient had a CT scan of the chest with contrast today that showed atelectasis, hiatal hernia, no pulmonary embolus, no pericardial effusion. Note that a contrast was not used. His chest x-ray this morning showed medial base infiltrate suggesting atelectasis. IMPRESSION AND RECOMMENDATIONS: 1. Chest pain. Suspect pleuritic from his pneumonia. Recommend no further cardiac evaluation. 2. Pneumonia. 3. Hypertension. The patient has been on calcium leanna. 4. Diabetes. 5. Sleep apnea. 6. Hyperlipidemia. <ELECTRONICALLY SIGNED> By: Jelani Mora MD, FACC 07/08/17 1750 [id number] Mora MD, FAC /nt
[2017-07-11 02:07] LABS: ADENOVIRUS Negative (Negative); INFLUENZA A Negative (Negative); INFLUENZA B Negative (Negative); METAPNEUMOVIRUS Negative (Negative); PARAINFLUENZA 1 Negative (Negative); PARAINFLUENZA 2 Negative (Negative); PARAINFLUENZA 3 Negative (Negative); RHINOVIRUS Negative (Negative); RSV A Negative (Negative); RSV B Negative (Negative)
== END 2017-07-08 16:23 | disposition short-term general hospital (02) | DRG 871 ==
LOC: M.ERS 23:23 → M.TBA-ER 07-03 00:58 → M.ERS 07-03 00:58 → M.TBA-ER 07-03 01:04 → M.2W 07-03 01:04 → M.3W 07-04 10:56 → M.ICU 07-08 02:28
PROVIDERS: Emergency Medicine; Internal Medicine; Internal Medicine Pulmonary Disease; ADMIT Internal Medicine
PROC: B24BZZ4 Ultrasonography of Heart with Aorta, Transesophageal (ICD-10-PCS; principal; 2017-07-06)
PROC: 5A09357 Assistance with Respiratory Ventilation, Less than 24 Consecutive Hours, Continuous Positive Airway Pressure (ICD-10-PCS; 2017-07-08)
DX: A41.9 Sepsis, unspecified organism (principal); J15.9 Unspecified bacterial pneumonia; J96.21 Acute and chronic respiratory failure with hypoxia; J96.22 Acute and chronic respiratory failure with hypercapnia; J40 Bronchitis, not specified as acute or chronic; I10 Essential (primary) hypertension; G89.29 Other chronic pain; K44.9 Diaphragmatic hernia without obstruction or gangrene; K21.9 Gastro-esophageal reflux disease without esophagitis; F90.9 Attention-deficit hyperactivity disorder, unspecified type; F41.9 Anxiety disorder, unspecified; E78.5 Hyperlipidemia, unspecified; G47.33 Obstructive sleep apnea (adult) (pediatric); F32.9 Major depressive disorder, single episode, unspecified; E11.9 Type 2 diabetes mellitus without complications; Z87.442 Personal history of urinary calculi; Z87.19 Personal history of other diseases of the digestive system; Z79.4 Long term (current) use of insulin; Z79.84 Long term (current) use of oral hypoglycemic drugs; Z79.899 Other long term (current) drug therapy; Z88.2 Allergy status to sulfonamides; Z88.8 Allergy status to other drugs, medicaments and biological substances; Z82.49 Family history of ischemic heart disease and other diseases of the circulatory system; Z83.3 Family history of diabetes mellitus